=== PATIENT | male | born 1970 | race Two or more races ===

== ENCOUNTER 2023-12-31 22:04 | Emergency (ER) | payer SELFPAY ==
[~2023-12-31] VITALS: Ht 177.8 cm; Wt 87.0 kg
[2023-12-31 22:14] VITALS: BP 144/87; PULSE 91; RESP 16; TEMP 98.7; O2SAT 97
[2023-12-31] MEDS: ACETAMINOPHEN 325MG TABLET PO ONE (23:30)
[2023-12-31] MEDS: LIDOCAINE 5% PATCH TOP SCH (23:30)
[2024-01-01] MEDS ORDERED: ACET-2708 MT (00:51)
== END 2024-01-01 01:30 | disposition home or self-care (01) ==
LOC: ER 22:04
DX: M79.652 Pain in left thigh (principal); I11.0 Hypertensive heart disease with heart failure; I50.9 Heart failure, unspecified; Z59.00 Homelessness unspecified
CPT/HCPCS: 93971; 99284; Z7610